=== PATIENT | male | born 1975 | race Native Hawaiian/Other Pacific Islander ===

== ENCOUNTER 2016-10-16 11:26 | Emergency (ER) | payer SELFPAY ==
[2016-10-16] MEDS ORDERED: Sodium Chloride 0.9% 1,000 ML IV STA (12:13)
[2016-10-16] MEDS ORDERED: Sodium Chloride 0.9% 1,000 ML ONE (12:27)
[2016-10-16 12:40] LABS: BASO # 0.1 K/uL (0.0-0.2); EOS # 0.1 K/uL (0.0-0.7); EOS % 1.6 % (0.0-4.0); HEMATOCRIT 45.6 % (35.0-51.0); LYMPH # 1.6 K/uL (1.0-4.3); LYMPH % 26.1 % (20.0-40.0); MEAN CELL VOLUME 85.7 fL (80.0-94.0); MEAN CORPUSCULAR HEMOGLOBIN 28.1 pg (27.0-31.0); MEAN CORPUSCULAR HGB CONC 32.8 g/dL (33.0-37.0); MEAN PLATELET VOLUME 8.6 fL (7.2-11.7); MONO # 0.4 K/uL (0.0-0.8); MONO % 6.5 % (0.0-10.0); RED CELL DISTRIBUTION WIDTH 13.4 % (11.5-14.5); WHITE BLOOD COUNT 6.2 K/uL (4.8-10.8)
[2016-10-16 12:43] LABS: URINE BILIRUBIN NEGATIVE (NEGATIVE); URINE BLOOD NEGATIVE (NEGATIVE); URINE COLOR Straw (YELLOW); URINE GLUCOSE (UA) NORMAL (Normal); URINE KETONE NEGATIVE (NEGATIVE); URINE LEUKOCYTE ESTERASE NEG Leu/uL (Negative); URINE PROTEIN NEGATIVE (NEGATIVE); URINE UROBILINOGEN NORMAL mg/dL (0.2-1.0)
[2016-10-16 12:49] LABS: CHLORIDE 98 mmol/L (98-107); POTASSIUM 4.8 mmol/L (3.6-5.2); SODIUM 139 mmol/L (132-148)
[2016-10-16 12:51] LABS: AST/SGOT 31 U/L (17-59); BILIRUBIN,TOTAL 1.2 mg/dL (0.2-1.3); CARBON DIOXIDE 32 mmol/L (22-30); GFR AFRICAN-AMERICAN > 60
[2016-10-16 12:52] LABS: ALB/GLOB RATIO 1.6 (1.0-2.1); ALKALINE PHOSPHATASE 60 U/L (38-126); ALT/SGPT 34 U/L (21-72); BLOOD UREA NITROGEN 13 mg/dL (9-20); CALCIUM 9.3 mg/dl (8.6-10.4); GLUCOSE,RANDOM 95 mg/dL (75-110); TOTAL PROTEIN 7.5 g/dL (6.3-8.3)
[2016-10-16] MEDS ORDERED: Iohexol 240 (50 ml) ONE (13:23)
[2016-10-16] MEDS ORDERED: Iodixanol 320 MG/ML 100 ML BOTTLE IV ONE (14:08)
--- NOTE | 2016-10-16 14:50 | CT ---
PROCEDURE: CT Pelvis with contrast HISTORY: rectal pain, abscess vs fissure COMPARISON: None. TECHNIQUE: Contiguous axial images of the pelvis with contrast. Coronal and sagittal reformats generated. Contrast dose: 100 cc Visipaque 320. Radiation dose: Total exam DLP = 286.72 mGy-cm. This CT exam was performed using one or more of the following dose reduction techniques: Automated exposure control, adjustment of the mA and/or kV according to patient size, and/or use of iterative reconstruction technique. FINDINGS: BLADDER: Unremarkable. No mass. REPRODUCTIVE ORGANS: Unremarkable. VISUALIZED BOWEL: Unremarkable. PERITONEUM: Unremarkable, as visualized. No free fluid. No free air. LYMPH NODES: Unremarkable. No enlarged lymph nodes. VASCULATURE: Unremarkable. BONES: No fracture or focal lesion. OTHER FINDINGS: Small bilateral hydroceles. IMPRESSION: Unremarkable contrast enhanced CT of the pelvis. No evidence of drainable collection, fistula, sinus tract.
[2016-10-16 15:09] VITALS: BP 144/88; PULSE 60; RESP 20; TEMP 98.4; O2SAT 99
--- NOTE | 2016-10-16 15:28 | C.PDOC ---
History Of Present Illness The patient, a 41 y/o male, presents to the ED for evaluation of rectal pain which has been occurring in intermittent episodes for the past few days. Patient admits to experiencing similar symptoms in the past. Patient denies fever, chills, abdominal pain, constipation. Time Seen by Provider: 10/16/16 11:46 Chief Complaint (Nursing): Abnormal Skin Integrity History Per: Patient History/Exam Limitations: no limitations Onset/Duration Of Symptoms: Days, Intermittent Episodes Current Symptoms Are (Timing): Still Present Quality Of Symptoms: Painful Additional History Per: Patient Past Medical History Reviewed: Historical Data, Nursing Documentation, Vital Signs Vital Signs: Last Vital Signs Temp 98.4 F 10/16/16 15:08 Pulse 60 10/16/16 15:08 Resp 20 10/16/16 15:08 BP 144/88 10/16/16 15:08 Pulse Ox 99 10/16/16 17:51 - Medical History PMH: No Chronic Diseases Surgical History: No Surg Hx Family History: States: Unknown Family Hx - Social History Hx Alcohol Use: Yes Hx Substance Use: No Review Of Systems Except As Marked, All Systems Reviewed And Found Negative. Constitutional: Negative for: Fever, Chills Gastrointestinal: Positive for: Rectal Pain. Negative for: Abdominal Pain, Constipation Physical Exam - Physical Exam Appears: Non-toxic, No Acute Distress Skin: Normal Color, Warm, Dry Head: Atraumatic, Normacephalic Eye(s): bilateral: Normal Inspection Oral Mucosa: Moist Neck: Supple Chest: Symmetrical, No Deformity, No Tenderness Cardiovascular: Rhythm Regular, No Murmur Respiratory: Normal Breath Sounds, No Rales, No Rhonchi, No Wheezing Gastrointestinal/Abdominal: Soft, No Tenderness, No Guarding, No Rebound Rectal: Heme Positive, No Hemorrhoids (external ), Tenderness (digital ), Other (+digital swelling ) Back: Normal Inspection, No Vertebral Tenderness, No Paraspinal Tenderness Extremity: Normal ROM, Capillary Refill (less than 2 seconds ) Neurological/Psych: Oriented x3, Normal Speech, Normal Cognition Gait: Steady ED Course And Treatment - Laboratory Results Result Diagrams: 10/16/16 12:37 10/16/16 12:37 O2 Sat by Pulse Oximetry: 99 (on RA) Pulse Ox Interpretation: Normal - CT Scan/US CT A/P Other Rad Studies (CT/US): Interpreted By Me, Read By Radiologist, Radiology Report Reviewed CT/US Interpretation: Accession No. : [id number]. Patient Name / ID : [id number] / [id number]. Exam Date : 10/16/2016 14:17:30 ( Approved ). Study Comment : Sex / Age : M / 41Y. Creator : Fabricio Kc MD. Dictator : Fabricio Kc MD. Research Laboratory Technician : Office Machine Servicer Apprentice : Fabricio Kc MD. Approver2 : Report Date : 10/16/2016 14:48:29. My Comment : . PROCEDURE: CT Pelvis with contrast. HISTORY: rectal pain, abscess vs fissure. COMPARISON: None. TECHNIQUE: Contiguous axial images of the pelvis with contrast. Coronal and sagittal reformats generated. Contrast dose: 100 cc Visipaque 320. Radiation dose: Total exam DLP = 286.72 mGy-cm. This CT exam was performed using one or more of the following dose reduction techniques: Automated exposure control, adjustment of the mA and/or kV according to patient size, and/or use of iterative reconstruction technique. FINDINGS: BLADDER: Unremarkable. No mass. REPRODUCTIVE ORGANS: Unremarkable. VISUALIZED BOWEL: Unremarkable. PERITONEUM: Unremarkable, as visualized. No free fluid. No free air. LYMPH NODES: Unremarkable. No enlarged lymph nodes. VASCULATURE: Unremarkable. BONES: No fracture or focal lesion. OTHER FINDINGS: Small bilateral hydroceles. IMPRESSION: Unremarkable contrast enhanced CT of the pelvis. No evidence of drainable collection, fistula, sinus tract. Progress Note: UA and CT A/P ordered and reviewed. Patient received IV Fluids. On reassessment, patient is resting comfortably, showing no signs of distress, and reports an improvement in his symptoms. Patient is stable for discharge from the ED and is advised to follow up with his PMD within 1-2 days for further evaluation. Disposition - Disposition Referrals: Edwardo Schroeder MD [Staff Provider] - Disposition: HOME/ ROUTINE Disposition Time: 15:24 Condition: STABLE Additional Instructions: Follow up with PMD within 1-2 days. Return to ED if feel worse. Prescriptions: Hydrocortisone-Pramoxine 1%-1% [Proctofoam-Hc 1%-1%] 1 appl TP 5XD #1 aer Instructions: Rectal Pain (ED) - Clinical Impression Clinical Impression: Rectal pain - PA / SAWMILL SUPERVISOR / Resident Statement MD/DO has reviewed & agrees with the documentation as recorded. - Scribe Statement The provider has reviewed the documentation as recorded by the Scribe (Cathleen Latif) All medical record entries made by the Scribe were at my direction and personally dictated by me. I have reviewed the chart and agree that the record accurately reflects my personal performance of the history, physical exam, medical decision making, and the department course for this patient. I have also personally directed, reviewed, and agree with the discharge instructions and disposition.
== END 2016-10-16 15:38 | disposition home or self-care (01) ==
LOC: C.ER 11:26
DX: K62.89 Other specified diseases of anus and rectum (principal)
CPT/HCPCS: 72193; 80053; 81001; 85025; 96360; 99284; G0328; J7040; Q9967